=== PATIENT | female | born 1975 | race Caucasian/White ===

== ENCOUNTER → 2016-03-29 16:43 | Emergency (ER) | payer OTHER ==
[~2016-03-29 16:43] MED LIST: HYDROcodone/ACETAMIN 5-325 MG* 1 TAB ONE; HYDROcodone/ACETAMIN 5-325 MG* 1 TAB PO ONE; Ketorolac INJ* 30 MG/ML 1 ML VIAL IV PUSH ONE; Morphine INJ* 4 MG/ML 1 ML CARPUJECT IV ONE; Ondansetron INJ* 2 MG/ML VIAL IV ONE
[2016-03-29 16:49] VITALS: BP 119/90
--- NOTE | 2016-03-29 17:25 | ED ---
Abdominal Pain/Female - HPI Summary HPI Summary: Pt here w/ ab pain. She's been dealing with this for a while but worse as of late - was at work today and states she couldn't take it anymore. Has tried ibuprofen, aleve, tylenol and heating pad w/o relief. H/o fibroids (last TVUS here in 2014 confirms uterine fibroids). Has had vaginal bleeding x 10 months but stopped bleeding this past week. Denies fever, chills, N/V. She has chronic diarrhea for which she takes loperimide w/ good results. Denies external vaginal pain, dysuria, urinary frequency, flank pain. Pt states she had a pelvic exam at [facility] last week. Nothing to report. She also had a pap smear [address] Annemarie Vasquez through [facility] - no abnormal findings and no h/o abnormal findings. No known h/o ovarian cysts. 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 She was able to deliver baby (her daughter) who is alive and well. Pt has not been sexually active in > 1 year and denies vaginal d/c, irritation however does report she has intermittent odor and she's not sure why. - History of Current Complaint Chief Complaint: EDAbdPain Stated Complaint: ABD PAIN Time Seen by Provider: 03/29/16 16:58 Hx Obtained From: Patient Hx Last Menstrual Period: bleeding since Mar 2014 Pain Intensity: 7 Allergies/Adverse Reactions: Allergies Allergy/AdvReac Type Severity Reaction Status Date / Time Aspirin Allergy Hives Verified 03/29/16 16:45 Codeine Allergy Vomiting Verified 03/29/16 16:45 PMH/Surg Hx/FS Hx/Imm Hx Previously Healthy: Yes Endocrine/Hematology History: Reports: Hx Anemia Denies: Hx Bone Marrow Disease, Hx Diabetes, Hx Sickle Cell Disease, Hx Thyroid Disease Cardiovascular History: Denies: Hx Congestive Heart Failure, Hx Hypertension Respiratory History: Reports: Hx Asthma Denies: Hx Chronic Obstructive Pulmonary Disease (COPD) GI History: Reports: Hx Gastroesophageal Reflux Disease, Other GI Disorders - chronic diarrhea of unknown etiology Denies: Hx Ulcer History: Reports: Other Problems/Disorders - 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 Left knee acl and ligament repairs - multiple, last one when she was in her early 30's. . [facility]. Ovarian cysts, bleeding cysts, miscarriage. Tubal Hx Anesthesia Reactions: No Infectious Disease History: No Infectious Disease History: Denies: Hx Hepatitis, Hx Human Immunodeficiency Virus (HIV), History Other Infectious Disease, Traveled Outside the [place] in Last 30 Days - Family History Known Family History: Positive: None - Social History Occupation: Employed Full-time - [employer] Alcohol Use: Rare Substance Use Type: Reports: None Smoking Status (MU): Former Smoker Have You Smoked in the Last Year: No Review of Systems Negative: Fever, Chills Negative: Chest Pain Negative: Shortness Of Breath Gastrointestinal: Other - see HPI Positive: Abdominal Pain, Diarrhea. Negative: Vomiting, Nausea Genitourinary: Negative Positive: see HPI Musculoskeletal: Negative Skin: Negative Neurological: Negative Psychological: Normal All Other Systems Reviewed And Are Negative: Yes Physical Exam Triage Information Reviewed: Yes Vital Signs On Initial Exam: Initial Vitals Temp Pulse Resp BP Pulse Ox 99.2 F 63 18 119/90 97 03/29/16 16:45 03/29/16 16:45 03/29/16 16:45 03/29/16 16:45 03/29/16 16:45 Vital Signs Reviewed: Yes Appearance: Positive: Well-Appearing, Pain Distress, Obese Skin: Positive: Warm, Dry Head/Face: Positive: Normal Head/Face Inspection Eyes: Positive: Normal, EOMI, Conjunctiva Clear - anicteric sclera ENT: Positive: Hearing grossly normal, Pharynx normal - mucosa moist Respiratory/Lung Sounds: Positive: Clear to Auscultation, Breath Sounds Present Cardiovascular: Positive: Normal, RRR Abdomen Description: Positive: Soft, Other: - diffuse tenderness - no rebounding Pelvic Exam: Positive: external exam normal, speculum exam normal, discharge - scant thin clear/yellow d/c, tender w/ cervical motion, tender adnexa, tender uterus. Negative: active bleeding, cervicitis, lesions, mass - difficult to asses uterus d/t body habitus, ulcers Musculoskeletal: Positive: Normal, Strength/ROM Intact Neurological: Positive: Normal, Sensory/Motor Intact, Alert, Oriented to Person Place, Time Psychiatric: Positive: Normal - concerned, anxious, in pain Diagnostics - Vital Signs Vital Signs Temp Pulse Resp BP Pulse Ox 03/29/16 16:45 99.2 F 63 18 119/90 97 - Laboratory Result Diagrams: 03/29/16 17:20 03/29/16 17:20 Lab Statement: Any lab studies that have been ordered have been reviewed, and results considered in the medical decision making process. Re-Evaluation - Re-Evaluation First Eval Change: Unchanged - s/p toradol Second Eval Change: Improved - s/p morphine Abdominal Pain Fem Course/Dx - Course Course Of Treatment: Pt presents w/ acute on chronic pelvic pain. She has a h/o uterine fibroids and recently had vaginal bleeding for 10 months straight. She is not bleeding at this time and her labs do not indicate anemia, coagulopathy, etc. TVUS confirms fibroids although smaller than in 2015. She has a PCP and will f/u there tomorrow as she had a pap smear recently (results are normal per pt, no results for review here). Pt also reports she had imaging at through [facility] recently - results "normal". Vaginal swabs were collected today and w/ a d /c noted as well as pelvic pain on bimanual exam and report of odor at times, will start tx for BV today. Pt's hx does not warrant tx of gonorrhea, chlamydia and she would not take empiric tx anyway. Short course of pain medication provided as well as education about castor oil packs, heat and close f/u w/ [facility] as she may be a candidate for hysterectomy. Reports she would be interested in having this procedure if appropriate. Discussed danger s/sx of when to return to ED sooner. Pt agrees w/ plan. - Diagnoses Provider Diagnoses: Fibroid, uterine, Pelvic pain Discharge - Discharge Plan Condition: Stable Disposition: HOME Prescriptions: Clindamycin Phosphate Vaginal [Cleocin] 2 % VA BEDTIME #1 tube HYDROcodone/ACETAMIN 5-325 MG* [[place] 5-325 TAB*] 1 tab PO Q6H PRN #20 tab MDD 4 PRN Reason: Pain Patient Education Materials: Uterine Fibroids (ED), Bacterial Vaginosis (ED) Referrals: Non Staff,Doctor [Primary Care Provider] - Aicha Dubon DO [Doctor of Osteopathy] - Shelley Quevedo MD [Medical Doctor] - Additional Instructions: Your pelvic pain appears to be from your uterine fibroids. It was also discussed that you may have a mild bacterial infection. The latter is being teated with vaginal suppositories. The fibroids will be treated with heat, NSAID 's, castor oil packs and norco for breakthrough pain. It is important that you follow-up with your PCP to discuss results of vaginal cultures today as well as other test results from exams through [facility] last week and pap 4 months ago. *If you develop worsening of pain, fever, chills, vomiting, heavy vaginal bleeding, back pain, chest pain, shortness of breath, return to ED
[2016-03-29 17:33] LABS: Hematocrit 37 % (35-47); Mean Corpuscular HGB Conc 33 g/dl (31-36); Mean Corpuscular Hemoglobin 27 pg (27-31); Mean Corpuscular Volume 83 fL (80-97); Mean Platelet Volume 9 um3 (7.4-10.4); Red Blood Count 4.49 10^6/ul (4.0-5.4); Red Cell Distribution Width 14 % (10.5-15)
[2016-03-29 17:47] LABS: BUN/Creatinine Ratio 8.5 (8-20); C Reactive Protein 12.54 mg/L (< 5.00); Calcium 9.6 mg/dL (8.6-10.3); EGFR African American 116.1 (>60); EGFR Non-African American 90.3 (>60); Globulin 3.8 g/dL (2-4); Potassium 3.8 mmol/L (3.5-5.0); Total Bilirubin 0.3 mg/dL (0.2-1.0); Total Protein 7.8 g/dL (6.4-8.9)
[2016-03-29 17:51] LABS: Urine Bacteria Absent (Absent); Urine Bilirubin Negative (Negative); Urine Glucose Negative (Negative); Urine Nitrite Negative (Negative)
--- NOTE | 2016-03-29 19:39 | RAD ---
Indication: Bilateral pelvic pain. Vaginal bleeding. Uterine fibroids. Comparison: August 30, 2014 Technique: Transabdominal pelvic ultrasound. Report: 10.7 x 6.2 x 6.0 cm uterus with lobular contour secondary to fibroids. Anterior uterine body myometrial to subserosal fibroid measures 3.2 x 2.4 x 3.5 cm with interval decrease from 5.3 x 4.6 x 4.9 cm. Anterior fundal 3.6 x 3.8 x 3.0 cm myometrial fibroid with resulting impression on the endometrium is decreased from 5.6 x 4.9 x 6.0 cm previously. Posterior myometrial 4.2 x 4.4 x 4.0 cm fibroid with resulting impression on the endometrium previously measured 6.1 x 3.8 x 5.2 cm. 7.5 mm endometrium. Negative for free pelvic fluid. 2.7 x 1.3 x 2.4 cm RIGHT ovary with documented vascular flow is unremarkable. 1.8 x 1.4 x 2.5 cm LEFT ovary with documented vascular flow is unremarkable. No visualized extra ovarian adnexal region lesions evident. IMPRESSION: 1. Interval decrease in size of uterine fibroids compared with the August 30, 2014 exam as described. 2. The endometrium is normal in thickness. 3. Negative for ovarian or extraovarian adnexal region lesions or free pelvic fluid.
== END | disposition home or self-care (01) ==
LOC: ED 16:43
DX: D25.9 Leiomyoma of uterus, unspecified (principal); R10.2 Pelvic and perineal pain
CPT/HCPCS: 36415; 76856; 80053; 81003; 81015; 83605; 83690; 84702; 85025; 86140; 87086; 87480; 87491; 87510; 87591; 87661; 96374; 96375; 99284; J1885; J2270; J2405

== ENCOUNTER → 2018-11-09 10:07 | Day surgery (SDC) | payer OTHER ==
[~2018-11-09 10:07] MED LIST changes: +Acetaminophen TAB* 325 MG PO PRN; +Buffered Lidocaine 1% SYRIN* 1 ML/SYRINGE INTRADERM ONE; +Famotidine IV* 10 MG/ML 2 ML (20 mg) IV ONE; +Famotidine IV* 10 MG/ML 2 ML (20 mg) ONE; +Glycopyrrolate IV* 0.2 MG/ML 1 ML VIAL ONE; -HYDROcodone/ACETAMIN 5-325 MG* 1 TAB ONE; -HYDROcodone/ACETAMIN 5-325 MG* 1 TAB PO ONE; +KETAMINE HCL* 50 MG/ML 10 ML VIAL ONE; -Ketorolac INJ* 30 MG/ML 1 ML VIAL IV PUSH ONE; +Lactated Ringers 1000 ML Bag* 1,000 ML IV SCH; +Midazolam* 1 MG/ML 2 ML VIAL (2 MG) ONE; +Midazolam* 1 MG/ML 5 ML VIAL (5 MG) ONE; -Morphine INJ* 4 MG/ML 1 ML CARPUJECT IV ONE; +Naloxone* 0.4 MG/ML 1 ML VIAL IV PRN; -Ondansetron INJ* 2 MG/ML VIAL IV ONE; +Ondansetron INJ* 2 MG/ML VIAL ONE; +Propofol* 10 MG/ML 20 ML BTL ONE; +fentaNYL* 50 MCG/ML 2 ML VIAL (100 MCG VIAL) ONE
[2018-11-09] MEDS: Buffered Lidocaine 1% SYRIN* 1 ML/SYRINGE INTRADERM ONE (11:39)
--- NOTE | 2018-11-09 15:06 | PRO ---
CC: Shelley Roth NP * DATE OF PROCEDURE: 11/09/2018 - [facility] PROCEDURE PERFORMED: Colonoscopy - incomplete due to poor prep. REFERRING PROVIDER: Shelley Roth NP. INDICATION: Patient has complaints of diarrhea multiple times per day as well as abdominal discomfort. A colonoscopy was attempted in August 2018, although the prep was incomplete. A polyp was removed during the exam in the distal left colon which was read as a tubular adenoma. Scheduled for repeat colonoscopy with extended prep. The patient today says that she is continuing to have brown stool and did not have much output with the prep. MEDICATIONS GIVEN: By Anesthesia. DESCRIPTION OF PROCEDURE: Full disclosure of risks was reviewed with the patient as detailed on the consent form. The patient was placed in the left lateral decubitus position and monitored with continuous pulse oximetry, capnography, interval blood pressure monitoring, and direct observation. After anorectal examination was performed, the adult colonoscope was inserted into the rectum and slowly advanced through the rectum. There was solid stool encountered. Procedure was aborted due to the inadequate prep. The scope was slowly withdrawn throughout the anal canal. There were small internal hemorrhoids appreciated. The patient was recovered in the GI recovery area. IMPRESSION: 1. Incomplete colonoscopy. Solid stool present on exam. FOLLOW-UP: 1. The patient will need to be seen in the clinic. She has now had two incomplete colonoscopies due to poor prep. Should undergo colonoscopy given symptoms and tubular adenoma seen on recent colonoscopy. However, we will need to discuss appropriate way to prep patient for this exam. Thank you very much for this referral. [id number]/[facility] #: [id number] MARIAJOSE
[2018-11-09 15:11] VITALS: BP 185/91
--- NOTE | 2018-11-10 01:57 | PRO ---
CC: NAILA Carrizales * DATE OF PROCEDURE: 11/09/18 - [facility] PROCEDURE: EGD with biopsy. REFERRING PROVIDER: NAILA Carrizales INDICATION: The patient underwent an EGD in August for significant GERD despite high dose PPI. She had [id number] esophagitis, hiatal hernia, and retained gastric food contents. She was recently changed to Dexilant 60 mg. The patient presents today to reassess esophagitis. Symptoms are unchanged with significant reflux on a regular basis. MEDICATIONS GIVEN: By Anesthesia. DESCRIPTION OF PROCEDURE: Full disclosure of risks was reviewed with the patient as detailed on the consent form. The patient was placed in left lateral decubitus position and monitored with continuous pulse oximetry, capnography, interval blood pressure monitoring, and direct observation. A bite -block was placed between the patient's teeth. An adult gastroscope was then inserted into the patient's mouth and advanced down the esophagus, into the stomach, and into the distal duodenum. Findings and interventions are described below. FINDINGS: Esophagus was a tubular structure without strictures or rings. There was mild to moderate severity erosive esophagitis in the distal esophagus with several linear erosions and a single clean-based ulcer located several centimeters above the GE junction. It was difficult to completely assess the GE junction given the esophagitis. GE junction occurred around 39 cm. There was pooling of liquid seen in the distal esophagus throughout the exam. Scope was advanced into the stomach. Stomach was examined in the forward and retroflexed views. There was a small 2 cm hiatal hernia with the top of the gastric fold measuring at 41 cm. In the stomach, there was a moderate amount of retained liquid and food debris. No erosions or ulcers. There were a few gastric polyps measuring approximately 5 mm each. Biopsies obtained from the gastric polyps. Scope was then advanced into the duodenum to at least the third portion. Duodenal mucosa was normal in appearance. Scope was then withdrawn back into the esophagus. Biopsies were obtained from the mid and distal esophagus. Scope was then withdrawn from the patient. The patient tolerated the procedure well and was recovered in the GI recovery area. IMPRESSION: 1. Complete upper endoscopy to the distal duodenum. 2. Persistent [id number] severity esophagitis. 3. Small hiatal hernia. 4. Retained gastric food contents suggestive of gastroparesis. FOLLOWUP: 1. Will switch from Dexilant to Nexium 40 mg twice daily. 2. Reviewed GERD lifestyle management recommendations. 3. Await pathology. 4. Schedule for gastric emptying study Thank you very much for this referral. [id number]/[facility] #: [id number] MARIAJOSE
== END | disposition home or self-care (01) ==
LOC: OR 10:07
PROVIDERS: ATTEND Internal Medicine Gastroenterology
DX: K21.0 Gastro-esophageal reflux disease with esophagitis (principal); K44.9 Diaphragmatic hernia without obstruction or gangrene; R10.9 Unspecified abdominal pain; R19.7 Diarrhea, unspecified; Z86.010 Personal history of colon polyps; K64.8 Other hemorrhoids; Z09 Encounter for follow-up examination after completed treatment for conditions other than malignant neoplasm; Z12.11 Encounter for screening for malignant neoplasm of colon
CPT/HCPCS: 88305; J2250; J2405; J2704; J3010

== ENCOUNTER 2019-01-17 18:28 | Emergency (ER) | payer SELFPAY ==
--- OUTSIDE RECORDS SUMMARY | 2019-01-17 18:38 | XMS REPORT | Continuity of Care Document ---
:1975 External Reference #:[id number] Author Name Jana Caraballo PA-C Address [address] [place] [address] Care Team Providers Name Role Phone Marisela Rangel MD Care Team Information Bank Manager [phone] Problems Active Problems Provider Date Abdominal pain Jana Caraballo PA-C Onset: 12/24/2017 Diarrhea Jana Caraballo PA-C Onset: 12/24/2017 Gastroesophageal reflux disease Jana Caraballo PA-C Onset: 12/24/2017 Social History Type Date Description Comments Sex Unknown Tobacco Use Start: Unknown End: Unknown Patient is a former smoker Smoking Status Reviewed: 12/23/18 Patient is a former smoker Allergies, Adverse Reactions, Alerts Active Allergies Reaction Severity Comments Date Codeine 12/24/2017 Aspirin 12/24/2017 Medications Active Medications SIG Qnty Indications Ordering Provider Date Lansoprazole Take 1 capsule 60caps Marium 12/01/2018 30mg by mouth twice MD Isidro Capsules daily. Citalopram 1 by mouth every Unknown Hydrobromide day 40mg Tablets Lamotrigine Daily Unknown 100mg Tablets Cetirizine HCL 1 by mouth every Unknown 10mg day Tablets Ventolin HFA prn Unknown 108(90Base) mcg/Act Aerosol History Medications Nexium 24HR use 2 capsules by 120connie Felix, 11/09/2018 - mouth twice daily 12/23/[address] Truong With by mouth as directed 4000ml Marium Felxi, 09/12/2018 - Flavor Packs 12/23/2018 240gm Solution Rec Suprep Bowel Prep use as directed as 354ml Marium Felix, 2018 - Kit on printed 12/23/2018 instructions given 17.5-3.13-1.6GM/1 to patient. patient 77ML Solution may administer to self in preparation for procedures Dexilant 1 by mouth every day 30caps Marium Felix, 08/26/2018 - 60mg 12/23/[address] Truong With by mouth as directed 4000ml Marium Felix, 07/11/2018 - Flavor Packs 08/26/2018 240gm Solution Rec Suprep Bowel Prep as directed 1units Marium Felix, 07/08/2018 - Kit 08/26/2018 17.5-3.13-1.6GM/1 77ML Solution Immunizations Description No Information Available Vital Signs Date Vital Result Comment 12/23/2018 10:37am Height 62.5 inches 5'2.50" Weight 196.00 lb BMI (Body Mass Index) 35.3 kg/m2 12/24/2017 10:30am Height 62.5 inches 5'2.50" Weight 202.00 lb BMI (Body Mass Index) 36.4 kg/m2 Results Test Acquired Date Facility Test Result H/L Range Note Laboratory test 11/09/2018 [facility] [place]ULT 1 finding Pathology Order BELOW Laboratory test 08/26/2018 [facility] [place] 2, 3 finding Pathology Order BELOW Laboratory test 08/26/2018 [facility] [place] SEE RESULT 4, 5 finding BELOW 1 SEE RESULT BELOW Name: MARY GRACEIAN : [address]: Marium Felix MD Acct: [id number] Unit: [id number] AGE: 42 Location: OR Re11/09/18 SEX: F Status: [place] [facility] [place]C: [id number] PASCUAL: 11/09/18-[address]: Marium Tate MD REQ: [id number] RECD: 11/09/18 STATUS: SOUT _ ORDERED: LEVEL 4/3 FINAL DIAGNOSIS 1. Stomach, polyp, biopsy: -- Fundic gland polyp. 2. Distal esophagus, biopsy: -- Moderate reflux esophagitis. (Up to 10 eosinophil/HPF). -- No glandular component identified. 3. Midesophagus, biopsy: -- Superficial squamous mucosa with mild esophagitis with eosinophilia (up to 3 eosinophil/HPF). -- No glandular component identified. Comment: The distribution and intensity of eosinophilic inflammation is most indicative of reflux esophagitis. Correlation with clinical and endoscopic findings is recommended. CLINICAL HISTORY Gastroesophageal reflux disease with esophagitis; diarrhea; abdominal pain; polyp POST-OPERATIVE DIAGNOSIS EGD: esophagus ??? moderate/severe erosive esophagitis; liquid in esophagus; mid and distal biopsy; gastric ??? retained liquid food debris; few polyps approximately 5 mm biopsy; duodenum ??? normal; colonoscopy: solid stool GROSS DESCRIPTION 1. The specimen is received in formalin labeled, Biopsy Gastric Polyp, and consists of a 0.4 by up to 0.3 x 0.3 cm schumacher-pink polypoid soft tissue fragment which is submitted entirely in one cassette. CONTINUED ON NEXT PAGE DEPARTMENT OF PATHOLOGY, [address] [place] [address] Angel Grijalva M.D. Director [facility] # [id number] 2. The specimen is received in formalin labeled, Biopsy Esophagus Distal, and consists of a 0.7 x 0.6 x 0.1 cm aggregate of white-pink irregular soft tissue fragments which is submitted entirely in one cassette. 3. The specimen is received in formalin labeled, Biopsy Esophagus Mid, and consists of a 0.7 x 0.6 x 0.1 cm aggregate of white-pink irregular soft tissue fragments which is submitted entirely in one cassette. Signed by and Reported on: Angel Grijalva MD 1245 END OF REPORT DEPARTMENT OF PATHOLOGY, [address] [place] [address] Angel Grijalva M.D. Director [facility] # [id number] SEE RESULT BELOW Name: CEDRIC BRODY : [address]: Marium Felix MD Acct: [id number] Unit: [id number] AGE: 42 Location: ENDOCEC Re08/26/18 SEX: F Status: DEP REF SPEC: [id number] PASCUAL: 08/26/18- SUBM DR: Marium Tate MD REQ: [id number] RECD: 08/26/18-1150 STATUS: SOUT _ ORDERED: LEVEL 4/7 COMMENTS: [id number] FINAL DIAGNOSIS 1. Small bowel, duodenum, biopsy: -- Small bowel mucosa with normal villous architecture and no significant pathologic abnormality. -- No villous blunting nor increased inflammatory infiltrate identified. 2. Stomach, biopsies: -- Gastric antral and oxyntic gland mucosa with no significant pathologic abnormality. -- No active gastritis or Helicobacter pylori-like organisms are identified. 3. Gastroesophageal junction, biopsy: -- Gastroesophageal transition zone mucosa with mild to moderate reflux esophagitis (up to 16 eosinophil/HPF). -- Goblet cell/intestinal metaplasia identified. -- No dysplasia identified. 4. Distal esophagus, biopsy: -- Superficial squamous mucosa with mild reflux esophagitis (up to 4 eosinophil/HPF. -- No glandular component identified. 5. Midesophagus, biopsy: -- Superficial squamous epithelium with no significant pathologic abnormality. -- No evidence of allergic/eosinophilic esophagitis or reflux esophagitis identified. -- No glandular component identified. 6. Colon, random biopsies: -- Large intestinal mucosa with no significant pathologic abnormality. -- No evidence of microscopic/lymphocytic colitis, collagenous colitis or other acute or chronic inflammatory bowel process identified. 7. Colon, sigmoid, biopsy: -- Tubular adenoma. -- No high grade dysplasia or malignancy. CONTINUED ON NEXT PAGE DEPARTMENT OF PATHOLOGY, [address] [place] [address] Angel Grijalva M.D. Director [facility] # [id number] RUN DATE: 08/29/18 [facility] LAB LIVE PAGE 2 Patient: CEDRIC BRODY [id number] (Continued) FINAL DIAGNOSIS (Continued) CLINICAL HISTORY Gastroesophageal reflux disease; diarrhea; abdominal pain POST-OPERATIVE DIAGNOSIS EGD: esophagus - 39 z line biopsy irregular; 38 - gastroesophageal junction; esophagitis (moderate); biopsy mid and distal; gastric - retained debris streaky erythema in body biopsy; mild antral erythema; biopsy; AKI test; duodenum - nodular bulb; biopsy; colonoscopy: poor prep; colon to sigmoid; 8-10 mm sigmoid hot snare; oozing - clip; biopsy GROSS DESCRIPTION 1. The specimen is received in formalin labeled, Duodenal Biopsies, and consists of a 0.7 x 0.6 x 0.2 cm aggregate of schumacher-pink irregular soft tissue fragments which is submitted entirely in one cassette. 2. The specimen is received in formalin labeled, Gastric Biopsies, and consists of two schumacher-pink irregular soft tissue fragments measuring 0.3 x 0.2 x 0.2 cm and 0.9 x 0.2 x 0.2 cm which are submitted entirely in one cassette. 3. The specimen is received in formalin labeled, GE Junction Biopsies, and consists of a 0.8 x 0.4 x 0.2 cm aggregate of schumacher-pink irregular soft tissue fragments which is submitted entirely in one cassette. 4. The specimen is received in formalin labeled, Distal Esophagus Biopsies , and consists of a 0.7 x 0.6 by up to 0.2 cm aggregate of schumacher-pink irregular soft tissue fragments which is submitted entirely in one cassette. 5. The specimen is received in formalin labeled, Mid Esophagus Biopsies, and consists of a 0.6 x 0.4 x 0.1 cm aggregate of translucent schumacher-pink irregular soft tissue fragments which is submitted entirely in one cassette. 6. The specimen is received in formalin labeled, Random Colon Biopsies, and consists of a 1.0 x 0.5 x 0.1 cm aggregate of schumacher-pink irregular soft tissue fragments which is submitted CONTINUED ON NEXT PAGE DEPARTMENT OF PATHOLOGY, [address] [place] [address] Angel Grijalva M.D. Director [facility] # [id number] RUN DATE: 08/29/18 [facility] LAB LIVE PAGE 3 Patient: MARY GRACECEDRIC Graham [id number] (Continued) GROSS DESCRIPTION (Continued) entirely in one cassette. 7. The specimen is received in formalin labeled, Sigmoid Colon Polyp, and consists of a 0.4 x 0.3 x 0.1 cm aggregate of schumacher-pink irregular soft tissue fragments which is submitted entirely in one cassette. Signed by and Reported on: Angel Grijalva MD 10/10 1052 END OF REPORT DEPARTMENT OF PATHOLOGY, [address] [place] [address] Angel Grijalva M.D. Director [facility] # [id number] SEE RESULT BELOW Name: CEDRIC BRODY : [address]: Marium Felix MD Acct: [id number] Unit: [id number] AGE: 42 Location: ENDOC[facility] Re08/26/18 SEX: F Status: DEP REF SPEC: [id number] PASCUAL: 08/26/18- SUBM DR: Marium Tate MD REQ: [id number] RECD: 08/26/181150 STATUS: SOUT _ ORDERED: LEVEL 4/7, IMMUNO-FIRST COMMENTS: [id number] ADDENDUM Addendum: Immunohistochemical stains for Helicobacter pylori-like organisms were performed with appropriate controls on block 2 and are negative. Addendum Signed (signature on file) Angel Grijalva MD 1347 FINAL DIAGNOSIS 1. Small bowel, duodenum, biopsy: -- Small bowel mucosa with normal villous architecture and no significant pathologic abnormality. -- No villous blunting nor increased inflammatory infiltrate identified. 2. Stomach, biopsies: -- Gastric antral and oxyntic gland mucosa with no significant pathologic abnormality. -- No active gastritis or Helicobacter pylori-like organisms are identified. 3. Gastroesophageal junction, biopsy: -- Gastroesophageal transition zone mucosa with mild to moderate reflux esophagitis (up to 16 eosinophil/HPF). -- Goblet cell/intestinal metaplasia identified. -- No dysplasia identified. 4. Distal esophagus, biopsy: -- Superficial squamous mucosa with mild reflux esophagitis (up to 4 eosinophil/HPF. -- No glandular component identified. 5. Midesophagus, biopsy: -- Superficial squamous epithelium with no significant pathologic abnormality. -- No evidence of allergic/eosinophilic esophagitis or reflux esophagitis identified. -- No glandular component identified. CONTINUED ON NEXT PAGE DEPARTMENT OF PATHOLOGY, [address] [place] [address] Angel Grijalva M.D. Director [facility] # [id number] RUN DATE: 08/30/18 [facility] LAB LIVE PAGE 2 Patient: CEDRIC BRODY E [id number] (Continued) FINAL DIAGNOSIS (Continued) 6. Colon, random biopsies: -- Large intestinal mucosa with no significant pathologic abnormality. -- No evidence of microscopic/lymphocytic colitis, collagenous colitis or other acute or chronic inflammatory bowel process identified. 7. Colon, sigmoid, biopsy: -- Tubular adenoma. -- No high grade dysplasia or malignancy. CLINICAL HISTORY Gastroesophageal reflux disease; diarrhea; abdominal pain POST-OPERATIVE DIAGNOSIS EGD: esophagus - 39 z line biopsy irregular; 38 - gastroesophageal junction; esophagitis (moderate); biopsy mid and distal; gastric - retained debris streaky erythema in body biopsy; mild antral erythema; biopsy; AKI test; duodenum - nodular bulb; biopsy; colonoscopy: poor prep; colon to sigmoid; 8-10 mm sigmoid hot snare; oozing - clip; biopsy GROSS DESCRIPTION 1. The specimen is received in formalin labeled, Duodenal Biopsies, and consists of a 0.7 x 0.6 x 0.2 cm aggregate of schumacher-pink irregular soft tissue fragments which is submitted entirely in one cassette. 2. The specimen is received in formalin labeled, Gastric Biopsies, and consists of two schumacher-pink irregular soft tissue fragments measuring 0.3 x 0.2 x 0.2 cm and 0.9 x 0.2 x 0.2 cm which are submitted entirely in one cassette. 3. The specimen is received in formalin labeled, GE Junction Biopsies, and consists of a 0.8 x 0.4 x 0.2 cm aggregate of schumacher-pink irregular soft tissue fragments which is submitted entirely in one cassette. CONTINUED ON NEXT PAGE DEPARTMENT OF PATHOLOGY, [address] [place] [address] Angel Grijalva M.D. Director [facility] # [id number] RUN DATE: 08/30/18 [facility] LAB LIVE PAGE 3 Patient: CEDRIC BRODY [id number] (Continued) GROSS DESCRIPTION (Continued) 4. The specimen is received in formalin labeled, Distal Esophagus Biopsies , and consists of a 0.7 x 0.6 by up to 0.2 cm aggregate of schumacher-pink irregular soft tissue fragments which is submitted entirely in one cassette. 5. The specimen is received in formalin labeled, Mid Esophagus Biopsies, and consists of a 0.6 x 0.4 x 0.1 cm aggregate of translucent schumacher-pink irregular soft tissue fragments which is submitted entirely in one cassette. 6. The specimen is received in formalin labeled, Random Colon Biopsies, and consists of a 1.0 x 0.5 x 0.1 cm aggregate of schumcaher-pink irregular soft tissue fragments which is submitted entirely in one cassette. 7. The specimen is received in formalin labeled, Sigmoid Colon Polyp, and consists of a 0.4 x 0.3 x 0.1 cm aggregate of schumacher-pink irregular soft tissue fragments which is submitted entirely in one cassette. Signed by and Reported on: Angel Grijalva MD 10/10 1052 END OF REPORT DEPARTMENT OF PATHOLOGY, [address] [place] [address] Angel Grijalva M.D. Director [facility] # [id number] SEE RESULT BELOW Name: CEDRIC BRODY : [address]: Marium Felix MD Acct: [id number] Unit: [id number] AGE: 42 Location: ENDOC[facility] Re08/26/18 SEX: F Status: REG REF SPEC: [id number] PASCUAL: 08/26/18 [facility] DR: Marium Tate MD REQ: [id number] RECD: 08/26/18 STATUS: WILBER VARGAS DR: Shelley Roth SHARK BIOLOGIST _ SOURCE: GAS ANTRUM SPDESC: ORDERED: Clotest COMMENTS: [id number] Procedure Result Reported Site Clotest Final 08/27/18- 48 ML Clotest Negative * ML - Main Lab . END OF REPORT DEPARTMENT OF PATHOLOGY, [address] [place] [address] Angel Grijalva M.D. Director [facility] # [id number] Procedures Date Code Description Status 11/09/2018 46322 Colonoscopy Completed 11/09/2018 03790 EGD+Biopsy Single Or Multiple Completed 08/26/2018 26614 Moderate Sedation Services; Same Phys Intl 15 Mins; PT >= Completed 5 Years 08/26/2018 18404 Colonoscopy W/ Snare RM Of Polyp/Tumor/Lesion Completed 08/26/2018 44670 Colonscopy+Biopsy Completed 08/26/2018 19081 EGD+Biopsy Single Or Multiple Completed Medical Devices Description No Information Available Encounters Description No Information Available Assessments Date Code Description Provider 11/09/2018 R10.9 Unspecified abdominal pain Marium Felix MD 11/09/2018 K22.10 Ulcer of esophagus without bleeding Marium Felix MD 11/09/2018 K44.9 Diaphragmatic hernia without obstruction or Marium Tate MD gangrene 08/26/2018 R19.7 Diarrhea, unspecified Marium Felix MD 08/26/2018 K21.0 Gastro-esophageal reflux disease with Marium Felix MD esophagitis 08/26/2018 K44.9 Diaphragmatic hernia without obstruction or Marium Tate MD gangrene Plan of Treatment No Information Available Functional Status Description No Information Available Mental Status Description No Information Available Referrals Description No Information Available
--- NOTE | 2019-01-17 19:22 | ED ---
Abdominal Pain/Female - HPI Summary HPI Summary: Pt is a 43 y/o F presenting to the ED with a chief complaint of abdominal pain initially onset about 2 weeks ago. She states she went to [facility] where she was told she had a hernia around her umbilicus, and to come back with worsening pain, so she went back a couple of days later and they told her she was constipated. She became angry and left, but her pain is worse now. She notes bruising around her umbilicus and in her RLQ, nausea, and vomiting. She denies constipation and urinary symptoms. Hx includes hysterectomy, asthma, bipolar disorder, depression. - History of Current Complaint Chief Complaint: EDAbdPain Stated Complaint: HERNIA PER PT Time Seen by Provider: 01/17/19 19:04 Hx Obtained From: Patient Hx Last Menstrual Period: bleeding since Mar 2014 Onset/Duration: Gradual Onset, Lasting Weeks, Still Present Timing: Constant Severity Initially: Moderate Severity Currently: Moderate Pain Intensity: 5 Pain Scale Used: 0-10 Numeric Location: Discrete At: RLQ, Umbilical Radiates: No Aggravating Factor(s): Nothing Alleviating Factor(s): Nothing Associated Signs and Symptoms: Positive: Nausea, Vomiting. Negative: Constipation, Urinary Symptoms Allergies/Adverse Reactions: Allergies Allergy/AdvReac Type Severity Reaction Status Date / Time aspirin Allergy Hives Verified 11/09/18 11:16 codeine Allergy Vomiting Verified 11/09/18 11:16 Home Medications: Home Medications Citalopram TAB* [CeleXA TAB*] 40 mg PO DAILY 01/17/19 [History Confirmed ] Lansoprazole CAP (NF) [Prevacid CAP (NF)] 30 mg PO DAILY 01/17/19 [History Confirmed 01/17/19] PMH/Surg Hx/FS Hx/Imm Hx Previously Healthy: Yes Endocrine/Hematology History: Reports: Hx Anemia - IN PAST Denies: Hx Bone Marrow Disease, Hx Diabetes, Hx Sickle Cell Disease, Hx Thyroid Disease Cardiovascular History: Denies: Hx Congestive Heart Failure, Hx Hypertension Respiratory History: Reports: Hx Asthma - USES INHALERS Denies: Hx Chronic Obstructive Pulmonary Disease (COPD), Other Respiratory Problems/Disorders GI History: Reports: Hx Gastroesophageal Reflux Disease - USES MEDS, Other GI Disorders - chronic diarrhea of unknown etiology Denies: Hx Ulcer History: Reports: Other Problems/Disorders Musculoskeletal History: Reports: Hx Arthritis - LEFT KNEE Sensory History: Reports: Hx Contacts or Glasses - GLASSES Denies: Hx Hearing Aid Opthamlomology History: Reports: Hx Contacts or Glasses - GLASSES Neurological History: Reports: Other Neuro Impairments/Disorders - USES MEDS FOR BI POLAR DISORDER Psychiatric History: Reports: Hx Depression, Hx Bipolar Disorder - Surgical History Surgery Procedure, Year, and Place: Appendectomy 2013,Left thumb, mid 20's - [facility]. Left knee acl and ligament repairs - multiple, last one when she was in her early 30's. 1999. [facility]. Ovarian cysts, bleeding cysts, miscarriage. Tubal . HYSTERECTOMY 2014 [facility] Hx Anesthesia Reactions: No Infectious Disease History: No Infectious Disease History: Denies: Hx Hepatitis, Hx Human Immunodeficiency Virus (HIV), History Other Infectious Disease, Traveled Outside the [place] in Last 30 Days - Family History Known Family History: Negative: Diabetes - Social History Alcohol Use: Rare Hx Substance Use: No Substance Use Type: Reports: None Hx Tobacco Use: Yes Smoking Status (MU): Former Smoker Have You Smoked in the Last Year: No Review of Systems Positive: Abdominal Pain, Vomiting, Nausea. Negative: Other - constipation Positive: no symptoms reported All Other Systems Reviewed And Are Negative: Yes Physical Exam - Summary Physical Exam Summary: Appearance: Well-appearing, Well-nourished, lying in bed comfortably Skin: Warm, dry, no obvious rash Eyes: sclera anicteric, no conjunctival pallor ENT: mucous membranes moist, pharynx appears normal Neck: Supple, nontender Respiratory: Clear to auscultation, no signs of respiratory distress Cardiovascular: Normal S1, S2. No murmurs. Normal distal pulses in tibial and radial bilaterally. Abdomen: Obese. Diffuse tenderness without peritoneal signs. Discreet hernia not appreciated in groin or around umbilicus. Where the pt states she has bruising, there are only veins visible through the skin. There is no ecchymosis. Nml active bowel sounds heard. Musculoskeletal: Normal, Strength/ROM Intact. numerous linear scars noted on both forearms, consistent with cutting behavior Neurological: A&Ox3, awake and alert, mentation is normal, speech is fluent and appropriate Psychiatric: affect is normal, does not appear anxious or depressed Triage Information Reviewed: Yes Vital Signs On Initial Exam: Initial Vitals Temp Pulse Resp BP Pulse Ox 97.2 F 58 18 185/97 99 01/17/19 18:28 01/17/19 18:28 01/17/19 18:28 01/17/19 18:28 01/17/19 18:28 Vital Signs Reviewed: Yes Procedures - Sedation Patient Received Moderate/Deep Sedation with Procedure: No Diagnostics - Vital Signs Vital Signs Temp Pulse Resp BP Pulse Ox 01/17/19 18:41 58 172/97 99 01/17/19 18:28 97.2 F 58 18 185/97 99 - Laboratory Result Diagrams: 01/17/19 19:30 01/17/19 19:30 Lab Statement: Any lab studies that have been ordered have been reviewed, and results considered in the medical decision making process. - Radiology Abd XR Radiology Interpretation Completed By: ED Physician Summary of Radiographic Findings: No signs of obstruction. Pending official radiology report. Abdominal Pain Fem Course/Dx - Course Course Of Treatment: Pt is a 43 y/o F presenting to the ED with a chief complaint of abdominal pain initially onset about 2 weeks ago. She states she went to [facility] where she was told she had a hernia around her umbilicus. She notes bruising around her umbilicus and in her RLQ, nausea, and vomiting. She denies constipation and urinary symptoms. Hx includes hysterectomy, asthma, bipolar disorder, depression. On exam, pt has numerous linear scars noted on both forearms, consistent with cutting behavior. Her abd is obese with diffuse tenderness without peritoneal signs. Discrete hernia not appreciated in groin or around umbilicus. Where the pt states she has bruising, there are only veins visible through the skin. There is no ecchymosis. Nml active bowel sounds heard. CT scan from [facility] looks to be normal with some noted constipation. Abd XR shows: No signs of obstruction. Pt will be sent home with dx of abd pain. She is agreeable with this plan. - Diagnoses Provider Diagnoses: Abdominal pain Discharge ED - Sign-Out/Discharge Documenting (check all that apply): Patient Departure - Discharge Plan Condition: Good Disposition: HOME Patient Education Materials: Constipation (ED), Acute Abdominal Pain (ED) Forms: *Work Release Referrals: Marisela Rangel MD [Primary Care Provider] - 1 Week Additional Instructions: Try to get through the golytely over the next 12-24 hours. If your pain starts to improve after that, I think we have our diagnosis. The CT done a week ago did not show anything else that would cause your symptoms, and lab studies were unremarkable tonight. - Billing Disposition and Condition Condition: GOOD Disposition: Home - Attestation Statements Document Initiated by Maylinibe: Yes Documenting Scribe: Mamie Poole Provider For Whom Meg is Documenting (Include Credential): Bob Mora MD. Scribe Attestation: I, Mamie Poole, scribed for Bob Mora MD. on 01/18/19 at 0128. Scribe Documentation Reviewed: Yes Provider Attestation: The documentation as recorded by the maylinibe, Mamie Poole accurately reflects the service I personally performed and the decisions made by me, Bob Mora MD. Status of Scribe Document: Viewed
[2019-01-17 19:41] LABS: ABS Basophils 0.1 10^3/ul (0-0.2); ABS Eosinophils 0.4 10^3/ul (0-0.6); ABS Lymphocytes 4.5 10^3/ul (1.0-4.8); ABS Monocytes 1.4 10^3/ul (0-0.8); ABS Neutrophils 6.4 10^3/ul (1.5-7.7); Eosinophil % 2.9 %; Hematocrit 38 % (35-47); Hemoglobin 13.5 g/dL (12.0-16.0); Lymphocyte % 35.4 %; Mean Corpuscular HGB Conc 35 g/dL (31-36); Mean Corpuscular Hemoglobin 30 pg (27-31); Mean Corpuscular Volume 86 fL (80-97); Mean Platelet Volume 9.4 fL (7.4-10.4); Platelet Count 287 10^3/uL (150-450); Red Blood Count 4.46 10^6 /uL (3.70-4.87); Red Cell Distribution Width 14 % (10-15); White Blood Count 12.9 10^3/uL (3.5-10.8)
[2019-01-17 19:50] LABS: Albumin 3.9 g/dL (3.2-5.2); Calcium 9.4 mg/dL (8.6-10.3); Potassium 3.7 mmol/L (3.5-5.0); Total Bilirubin 0.2 mg/dL (0.2-1.0)
[2019-01-17 19:56] LABS: BUN/Creatinine Ratio 10.1 (8-20); C Reactive Protein 6.37 mg/L (<8.01); EGFR African American 111.3 (>60); Globulin 3.9 g/dL (2-4); Total Protein 7.8 g/dL (6.4-8.9)
[2019-01-17] MEDS ORDERED: PEG 3000 GI LAVAGE* 1 GALLON PO ONE (21:22)
[2019-01-17 21:40] VITALS: BP 150/73
== END 2019-01-17 21:30 | disposition home or self-care (01) ==
LOC: ED 18:28
DX: R10.9 Unspecified abdominal pain (principal); K80.20 Calculus of gallbladder without cholecystitis without obstruction; J45.909 Unspecified asthma, uncomplicated; F31.9 Bipolar disorder, unspecified; K21.9 Gastro-esophageal reflux disease without esophagitis; Z90.710 Acquired absence of both cervix and uterus; Z90.89 Acquired absence of other organs; Z87.891 Personal history of nicotine dependence; Z79.899 Other long term (current) drug therapy; Z88.5 Allergy status to narcotic agent; Z88.8 Allergy status to other drugs, medicaments and biological substances
CPT/HCPCS: 36415; 74018; 80053; 83605; 83690; 85025; 86140; 99283; A9270-GY

== ENCOUNTER 2023-03-14 05:23 | Inpatient (IN) ==
[2023-03-14] MEDS ORDERED: Heparin 5000 UNITS/ML 1 mL VIAL IV SCH (06:00)
[2023-03-14] MEDS ORDERED: Heparin DRIP 25,000 UNITS BAG 25,000 UNITS/250 ML BAG IV SCH (06:00)
[2023-03-14 06:41] LABS: Hematocrit 39.1 % (35-45); Hemoglobin 12.9 g/dL (11.5-14.3); Mean Corpuscular Hemoglobin 28.6 pg (27-33); Mean Corpuscular Hgb Conc 32.9 g/dL (31-36); Mean Corpuscular Volume 86.9 fL (80-97); Platelet Count 336 10^3/uL (150-450); Red Cell Distribution Width 14.5 % (12-17); White Blood Count 13.3 10^3/uL (3.8-11.8)
[2023-03-14 07:01] LABS: Albumin 3.8 g/dL (3.2-5.2); C Reactive Protein 20.61 mg/L (<8.01); Calcium 9.2 mg/dL (8.6-10.3); Creatinine, Serum 0.73 mg/dL (0.51-0.95); Globulin 3.9 g/dL (2-4); Potassium 3.6 mmol/L (3.5-5.0); Total Bilirubin 0.5 mg/dL (0.2-1.0); Total Protein 7.7 g/dL (6.4-8.9); eGFR CKD-EPI 100.8 (>60)
[2023-03-14 07:23] LABS: ABS Basophils 0.1 10^3/uL (0.0-0.1); ABS Lymphocytes 3.2 10^3/uL (1.0-4.8); ABS Monocytes 1.3 10^3/uL (0.0-0.9); ABS Nucleated RBC 0.01 10^3/ul; Eosinophil % 0.1 %; Lymphocyte % 23.6 %; Nucleated Red Blood Cells % 0.1 %/100WBC (0.0-0.8); RBC Morphology Normal (Normal); Smudge Cells Present
[2023-03-14 07:34] LABS: TSH Ultra Thyroid Stim Horm 0.85 mcIU/mL (0.34-5.60)
[2023-03-14] MEDS ORDERED: Metoprolol Tartrate 5 mg VIAL 5 ml VIAL (1 mg/ml) ONE (07:58)
[2023-03-14] MEDS: Metoprolol Tartrate 5 mg VIAL 5 ml VIAL (1 mg/ml) IV PRN ×2 (08:00→13:43)
[2023-03-14 08:16] LABS: High Sensitivity Troponin 1 Hr 48 pg/mL (<15); Rapid COVID-19 Molecular Undetected (Undetected)
[2023-03-14 09:11] LABS: Influenza A Molecular Negative (Negative); Influenza B Molecular Negative (Negative)
[2023-03-14] MEDS ORDERED: Chlorhexidine MOUTHWASH 0.12% 15 ML UDC SWISH SPIT ONE (09:37)
[2023-03-14] MEDS: Venlafaxine XR 75 mg PO SCH (10:13)
[2023-03-14] MEDS ORDERED: Nitroglycerin 0.3 mg TAB SL PRN (14:06)
[2023-03-14] MEDS ORDERED: Metoprolol Tartrate 5 mg VIAL 5 ml VIAL (1 mg/ml) IV PRN (14:17)
[2023-03-14] MEDS ORDERED: Metoprolol Tartrate 5 mg VIAL 5 ml VIAL (1 mg/ml) IV ONE (14:19)
[2023-03-14] MEDS: Heparin 5000 UNITS/ML 1 mL VIAL IV SCH ×2 (14:27→14:41)
[2023-03-14 14:40] LABS: Creatinine, Serum 0.85 mg/dL (0.51-0.95); eGFR CKD-EPI 83.9 (>60)
[2023-03-14 14:43] LABS: HDL Cholesterol 28.8 mg/dL
[2023-03-14] MEDS: Heparin DRIP 25,000 UNITS BAG 25,000 UNITS/250 ML BAG IV SCH (14:45)
[2023-03-14 15:46] LABS: ABS Basophils 0.1 10^3/uL (0.0-0.1); ABS Eosinophils 0.1 10^3/uL (0.0-0.5); ABS Lymphocytes 3.8 10^3/uL (1.0-4.8); ABS Monocytes 1.4 10^3/uL (0.0-0.9); ABS Neutrophils 6.1 10^3/uL (1.5-7.6); ABS Nucleated RBC 0.01 10^3/ul; Eosinophil % 1.1 %; Hematocrit 36.7 % (35-45); Hemoglobin 12.3 g/dL (11.5-14.3); Lymphocyte % 32.8 %; Mean Corpuscular Hgb Conc 33.5 g/dL (31-36); Mean Corpuscular Volume 86.5 fL (80-97); Mean Platelet Volume 9.1 fL (7.5-11.2); Nucleated Red Blood Cells % 0.1 %/100WBC (0.0-0.8); Platelet Count 325 10^3/uL (150-450); Red Blood Count 4.24 10^6/uL (3.63-4.92); Red Cell Distribution Width 14.4 % (12-17); White Blood Count 11.6 10^3/uL (3.8-11.8)
[2023-03-14 16:10] LABS: High Sensitivity Troponin 1 Hr 43 pg/mL (<15)
[2023-03-14 17:23] LABS: High Sensitivity Troponin 3 Hr 38 pg/mL (<15)
[2023-03-15 03:30] LABS: Hematocrit 38.1 % (35-45); Hemoglobin 12.5 g/dL (11.5-14.3); Mean Corpuscular Hemoglobin 28.6 pg (27-33); Mean Corpuscular Hgb Conc 32.9 g/dL (31-36); Mean Corpuscular Volume 87.1 fL (80-97); Mean Platelet Volume 9.5 fL (7.5-11.2); Platelet Count 313 10^3/uL (150-450); Red Blood Count 4.37 10^6/uL (3.63-4.92); Red Cell Distribution Width 14.6 % (12-17); White Blood Count 9.5 10^3/uL (3.8-11.8)
[2023-03-15 03:35] LABS: Creatinine, Serum 0.75 mg/dL (0.51-0.95); Magnesium 1.9 mg/dL (1.9-2.7); Potassium 3.7 mmol/L (3.5-5.0); eGFR CKD-EPI 97.5 (>60)
[2023-03-15] MEDS: Heparin 5000 UNITS/ML 1 mL VIAL IV SCH ×2 (03:39→11:47)
[2023-03-15 04:33] LABS: ABS Basophils 0.1 10^3/uL (0.0-0.1); ABS Eosinophils 0.2 10^3/uL (0.0-0.5); ABS Lymphocytes 2.9 10^3/uL (1.0-4.8); ABS Monocytes 1.3 10^3/uL (0.0-0.9); Lymphocyte % 30.7 %
[2023-03-15 04:34] LABS: RBC Morphology Normal (Normal)
[2023-03-15] MEDS ORDERED: Magnesium Sulfate IV 1GM/100ML 1 GM/100 ML BAG IV ONE (05:53)
[2023-03-15] MEDS: Venlafaxine XR 75 mg PO SCH (08:01)
[2023-03-15] MEDS ORDERED: Naloxone 0.4 mg VIAL 0.4 mg/ml 1 ml VIAL ONE (14:14)
[2023-03-15] MEDS ORDERED: fentaNYL 100 mcg/2 ml 50 MCG/ML VIAL ONE ×2 (14:14→15:17)
[2023-03-15] MEDS ORDERED: Midazolam 5 mg/5 ml VIAL 1 mg/ml 5 ml VIAL (5 mg) ONE ×2 (14:14→16:42)
[2023-03-15] MEDS ORDERED: Flumazenil 0.5 mg/5 ml 0.1 MG/ML 5 ml VIAL ONE (14:14)
[2023-03-15] MEDS ORDERED: Flumazenil 0.5 mg/5 ml 0.1 MG/ML 5 ml VIAL IV PRN (15:00)
[2023-03-15] MEDS ORDERED: fentaNYL 100 mcg/2 ml 50 MCG/ML VIAL IV SLOW PU ONE (15:00)
[2023-03-15] MEDS ORDERED: Midazolam 10 mg/10 ml VIAL 1 mg/ml 10 ml VIAL (10 mg) IV SLOW PU ONE (15:00)
[2023-03-15] MEDS ORDERED: Naloxone 0.4 mg VIAL 0.4 mg/ml 1 ml VIAL IV PUSH PRN (15:00)
[2023-03-15] MEDS: Heparin DRIP 25,000 UNITS BAG 25,000 UNITS/250 ML BAG IV SCH (15:29)
[2023-03-15] MEDS ORDERED: Amiodarone IV 150 mg/3 ml VIAL IVPB ONE (15:39)
[2023-03-15] MEDS ORDERED: Amiodarone 360 MG IVPREMIX 360 MG/200 ML BAG IV ONE (15:45)
[2023-03-15] MEDS ORDERED: .Amiodarone 24HR ONLY IV Protocol Order Note IV ONE (16:51)
[2023-03-15] MEDS ORDERED: Amiodarone 360 MG IVPREMIX 360 MG/200 ML BAG IV SCH (17:05)
[2023-03-15] MEDS: Amiodarone 360 MG IVPREMIX 360 MG/200 ML BAG IV SCH (23:04)
[2023-03-16 04:22] LABS: ABS Basophils 0.1 10^3/uL (0.0-0.1); ABS Eosinophils 0.3 10^3/uL (0.0-0.5); ABS Lymphocytes 2.6 10^3/uL (1.0-4.8); ABS Monocytes 1.2 10^3/uL (0.0-0.9); ABS Neutrophils 7.2 10^3/uL (1.5-7.6); ABS Nucleated RBC 0.01 10^3/ul; Eosinophil % 2.3 %; Hematocrit 35.3 % (35-45); Hemoglobin 11.7 g/dL (11.5-14.3); Lymphocyte % 22.3 %; Mean Corpuscular Hemoglobin 28.7 pg (27-33); Mean Corpuscular Hgb Conc 33.1 g/dL (31-36); Mean Corpuscular Volume 86.8 fL (80-97); Mean Platelet Volume 9.2 fL (7.5-11.2); Nucleated Red Blood Cells % 0.1 %/100WBC (0.0-0.8); Platelet Count 301 10^3/uL (150-450); Red Blood Count 4.06 10^6/uL (3.63-4.92); Red Cell Distribution Width 14.5 % (12-17); White Blood Count 11.5 10^3/uL (3.8-11.8)
[2023-03-16 04:27] LABS: Creatinine, Serum 0.87 mg/dL (0.51-0.95); Potassium 3.5 mmol/L (3.5-5.0); eGFR CKD-EPI 81.6 (>60)
[2023-03-16] MEDS: Venlafaxine XR 75 mg PO SCH (08:21)
[2023-03-16 08:37] LABS: Magnesium 1.9 mg/dL (1.9-2.7)
[2023-03-16] MEDS: Heparin DRIP 25,000 UNITS BAG 25,000 UNITS/250 ML BAG IV SCH (08:52)
[2023-03-16] MEDS: Amiodarone 360 MG IVPREMIX 360 MG/200 ML BAG IV SCH (10:53)
[2023-03-16] MEDS ORDERED: Magnesium Sulfate 2 gm BAG 2 GM/50 ML BAG IVPB ONE (11:36)
[2023-03-16] MEDS ORDERED: Potassium Chlor 20 meq TAB.ER PO ONE (11:36)
[2023-03-16] MEDS: Amiodarone 400 mg TAB PO SCH ×2 (16:40→20:53)
[2023-03-16] MEDS: Enoxaparin 80 MG/0.8 ML SYR SUBCUT SCH (20:53)
[2023-03-17 06:27] LABS: ABS Basophils 0.1 10^3/uL (0.0-0.1); ABS Eosinophils 0.2 10^3/uL (0.0-0.5); ABS Lymphocytes 2.6 10^3/uL (1.0-4.8); ABS Monocytes 1.2 10^3/uL (0.0-0.9); ABS Neutrophils 5.2 10^3/uL (1.5-7.6); ABS Nucleated RBC 0.01 10^3/ul; Eosinophil % 1.9 %; Hematocrit 34.1 % (35-45); Hemoglobin 11.2 g/dL (11.5-14.3); Lymphocyte % 28.1 %; Mean Corpuscular Hemoglobin 28.7 pg (27-33); Mean Corpuscular Hgb Conc 32.7 g/dL (31-36); Mean Corpuscular Volume 87.5 fL (80-97); Mean Platelet Volume 9.6 fL (7.5-11.2); Nucleated Red Blood Cells % 0.1 %/100WBC (0.0-0.8); Platelet Count 283 10^3/uL (150-450); Red Cell Distribution Width 14.7 % (12-17); White Blood Count 9.2 10^3/uL (3.8-11.8)
[2023-03-17 06:49] LABS: Calcium 9.3 mg/dL (8.6-10.3); Creatinine, Serum 0.72 mg/dL (0.51-0.95); Magnesium 2.1 mg/dL (1.9-2.7); Phosphorus 3.4 mg/dL (2.5-5.0); Potassium 3.8 mmol/L (3.5-5.0); eGFR CKD-EPI 102.4 (>60)
[2023-03-17] MEDS ORDERED: Amiodarone 400 mg TAB PO SCH (09:00)
[2023-03-17] MEDS: Amiodarone 400 mg TAB PO SCH ×2 (09:22→19:55)
[2023-03-17] MEDS: Venlafaxine XR 75 mg PO SCH (09:22)
[2023-03-17] MEDS: Enoxaparin 80 MG/0.8 ML SYR SUBCUT SCH ×2 (09:22→19:50)
[2023-03-17] MEDS ORDERED: Albuterol HFA INHALER 8 gm MDI INH PRN (09:34)
[2023-03-17] MEDS: Mometasone/Formoter 200/5 MDI INH SCH ×2 (11:59→20:49)
[2023-03-17] MEDS ORDERED: Furosemide 20 mg/2 ml IV VIAL IV ONE (16:03)
[2023-03-18 06:02] LABS: ABS Eosinophils 0.2 10^3/uL (0.0-0.5); ABS Monocytes 1.1 10^3/uL (0.0-0.9); ABS Neutrophils 5.5 10^3/uL (1.5-7.6); ABS Nucleated RBC 0.02 10^3/ul; Eosinophil % 2.1 %; Hematocrit 37.5 % (35-45); Hemoglobin 12.2 g/dL (11.5-14.3); Lymphocyte % 22.9 %; Mean Corpuscular Hemoglobin 28.5 pg (27-33); Mean Corpuscular Hgb Conc 32.5 g/dL (31-36); Mean Corpuscular Volume 87.5 fL (80-97); Mean Platelet Volume 9.7 fL (7.5-11.2); Nucleated Red Blood Cells % 0.2 %/100WBC (0.0-0.8); Platelet Count 282 10^3/uL (150-450); Red Blood Count 4.28 10^6/uL (3.63-4.92); Red Cell Distribution Width 15.1 % (12-17); White Blood Count 8.8 10^3/uL (3.8-11.8)
[2023-03-18 06:18] LABS: Creatinine, Serum 0.72 mg/dL (0.51-0.95); Magnesium 1.8 mg/dL (1.9-2.7); Phosphorus 4.1 mg/dL (2.5-5.0); Potassium 3.5 mmol/L (3.5-5.0); eGFR CKD-EPI 102.4 (>60)
[2023-03-18] MEDS ORDERED: Furosemide 20 mg/2 ml IV VIAL IV ONE (08:00)
[2023-03-18] MEDS: Mometasone/Formoter 200/5 MDI INH SCH ×2 (08:09→19:59)
[2023-03-18] MEDS: Venlafaxine XR 75 mg PO SCH (09:51)
[2023-03-18] MEDS: Amiodarone 400 mg TAB PO SCH ×2 (09:52→20:15)
[2023-03-18] MEDS: Enoxaparin 80 MG/0.8 ML SYR SUBCUT SCH ×2 (09:53→19:57)
[2023-03-18] MEDS: Chlorhexidine MOUTHWASH 0.12% 15 ML UDC SWISH SPIT SCH ×2 (16:41→19:58)
[2023-03-18] MEDS ORDERED: Ondansetron 4 mg VIAL 2 MG/ML 2 ml VIAL IV PRN (17:41)
[2023-03-18] MEDS ORDERED: Acetaminophen IV 1 GM/100ML 1,000 MG/100 ML BAG IV ONE (19:32)
[2023-03-19 06:09] LABS: ABS Basophils 0.1 10^3/uL (0.0-0.1); ABS Eosinophils 0.3 10^3/uL (0.0-0.5); ABS Lymphocytes 2.2 10^3/uL (1.0-4.8); ABS Monocytes 1.2 10^3/uL (0.0-0.9); ABS Neutrophils 5.4 10^3/uL (1.5-7.6); ABS Nucleated RBC 0.01 10^3/ul; Hematocrit 42.6 % (35-45); Hemoglobin 13.8 g/dL (11.5-14.3); Lymphocyte % 24.5 %; Mean Corpuscular Hemoglobin 28.6 pg (27-33); Mean Corpuscular Hgb Conc 32.5 g/dL (31-36); Mean Platelet Volume 9.4 fL (7.5-11.2); Nucleated Red Blood Cells % 0.2 %/100WBC (0.0-0.8); Platelet Count 316 10^3/uL (150-450); Red Blood Count 4.84 10^6/uL (3.63-4.92); Red Cell Distribution Width 14.9 % (12-17); White Blood Count 9.1 10^3/uL (3.8-11.8)
[2023-03-19] MEDS ORDERED: Acetaminophen IV 1 GM/100ML 1,000 MG/100 ML BAG IV ONE (06:14)
[2023-03-19] MEDS: Chlorhexidine MOUTHWASH 0.12% 15 ML UDC SWISH SPIT SCH ×4 (06:21→20:56)
[2023-03-19 07:08] LABS: Magnesium 1.8 mg/dL (1.9-2.7); Phosphorus 4.7 mg/dL (2.5-5.0); Potassium 4.1 mmol/L (3.5-5.0)
[2023-03-19 07:09] LABS: Calcium 9.2 mg/dL (8.6-10.3); Creatinine, Serum 0.66 mg/dL (0.51-0.95); eGFR CKD-EPI 107.5 (>60)
[2023-03-19] MEDS: Mometasone/Formoter 200/5 MDI INH SCH ×2 (07:44→19:31)
[2023-03-19] MEDS ORDERED: Regadenoson 0.4 MG/5 ML SYRINGE ONE (08:44)
[2023-03-19] MEDS ORDERED: Aminophylline 25 MG/ML VIAL ONE (08:44)
[2023-03-19] MEDS ORDERED: NS 0.9% 500 ml BAG 500 ML IV ONE (09:28)
[2023-03-19] MEDS: Venlafaxine XR 75 mg PO SCH (10:45)
[2023-03-19] MEDS: Enoxaparin 80 MG/0.8 ML SYR SUBCUT SCH (10:45)
[2023-03-19] MEDS: Amiodarone 400 mg TAB PO SCH ×3 (10:46→20:55)
[2023-03-19] MEDS: Magnesium Sulfate IV 1GM/100ML 1 GM/100 ML BAG IV SCH ×2 (11:10→12:32)
[2023-03-19] MEDS ORDERED: Amiodarone 400 mg TAB PO ONE (15:00)
[2023-03-19] MEDS: Metoprolol Tartrate 5 mg VIAL 5 ml VIAL (1 mg/ml) IV PRN (18:06)
[2023-03-20] MEDS: Metoprolol Tartrate 5 mg VIAL 5 ml VIAL (1 mg/ml) IV PRN ×2 (00:13→06:04)
[2023-03-20 05:41] LABS: Hematocrit 43.2 % (35-45); Hemoglobin 14.2 g/dL (11.5-14.3); Mean Corpuscular Hemoglobin 28.8 pg (27-33); Mean Corpuscular Hgb Conc 32.9 g/dL (31-36); Mean Corpuscular Volume 87.6 fL (80-97); Mean Platelet Volume 9.2 fL (7.5-11.2); Platelet Count 339 10^3/uL (150-450); Red Blood Count 4.93 10^6/uL (3.63-4.92); Red Cell Distribution Width 15.1 % (12-17); White Blood Count 10.5 10^3/uL (3.8-11.8)
[2023-03-20 05:59] LABS: Albumin 3.6 g/dL (3.2-5.2); Albumin/Globulin Ratio 0.9 (1-3); Calcium 9.5 mg/dL (8.6-10.3); Creatinine, Serum 0.7 mg/dL (0.51-0.95); Globulin 3.9 g/dL (2-4); Potassium 4.1 mmol/L (3.5-5.0); Total Bilirubin 0.4 mg/dL (0.2-1.0); Total Protein 7.5 g/dL (6.4-8.9)
[2023-03-20] MEDS: Mometasone/Formoter 200/5 MDI INH SCH ×2 (07:57→18:18)
[2023-03-20] MEDS: Amiodarone 400 mg TAB PO SCH ×2 (08:24→20:11)
[2023-03-20] MEDS: Venlafaxine XR 75 mg PO SCH (08:24)
[2023-03-20] MEDS: Chlorhexidine MOUTHWASH 0.12% 15 ML UDC SWISH SPIT SCH ×3 (08:25→20:12)
[2023-03-20] MEDS ORDERED: Amiodarone 400 mg TAB PO ONE (11:30)
[2023-03-21] MEDS: Amiodarone 400 mg TAB PO SCH ×2 (08:14→19:41)
[2023-03-21] MEDS: Venlafaxine XR 75 mg PO SCH (08:14)
[2023-03-21] MEDS: Mometasone/Formoter 200/5 MDI INH SCH ×2 (08:21→20:01)
[2023-03-21] MEDS ORDERED: Adenosine 3 MG/ML 2 ml VIAL (6 mg) IV PUSH ONE ×2 (12:44→13:14)
[2023-03-21] MEDS ORDERED: Adenosine 3 MG/ML 2 ml VIAL (6 mg) ONE (13:08)
[2023-03-21 19:05] LABS: TSH Ultra Thyroid Stim Horm 1.99 mcIU/mL (0.34-5.60)
[2023-03-21 19:07] LABS: Free T3 3.14 pg/mL (2.5-3.9); Free T4 0.97 ng/dL (0.61-1.12)
[2023-03-22] MEDS ORDERED: NS 0.9% 1000 ml BAG 1,000 ML IV ONE (07:00)
[2023-03-22] MEDS: Venlafaxine XR 75 mg PO SCH (07:45)
[2023-03-22] MEDS: Amiodarone 400 mg TAB PO SCH (07:46)
[2023-03-22] MEDS ORDERED: Flumazenil 0.5 mg/5 ml 0.1 MG/ML 5 ml VIAL ONE (08:35)
[2023-03-22] MEDS ORDERED: Midazolam 5 mg/5 ml VIAL 1 mg/ml 5 ml VIAL (5 mg) ONE (08:35)
[2023-03-22] MEDS ORDERED: Naloxone 0.4 mg VIAL 0.4 mg/ml 1 ml VIAL ONE (08:35)
[2023-03-22] MEDS ORDERED: fentaNYL 100 mcg/2 ml 50 MCG/ML VIAL ONE (08:35)
[2023-03-22] MEDS ORDERED: fentaNYL 100 mcg/2 ml 50 MCG/ML VIAL IV SLOW PU ONE (09:45)
[2023-03-22] MEDS ORDERED: Midazolam 10 mg/10 ml VIAL 1 mg/ml 10 ml VIAL (10 mg) IV SLOW PU ONE (09:45)
[2023-03-22] MEDS ORDERED: Lactated Ringers 1000 ml BAG 1,000 ML IV SCH (11:00)
[2023-03-22] MEDS: Mometasone/Formoter 200/5 MDI INH SCH ×2 (12:05→20:34)
[2023-03-22 14:06] VITALS: BP 89/53
== END 2023-03-22 16:10 | disposition home or self-care (01) | DRG 201 ==
LOC: ED 05:23 → SUATTDRO 07:00 → EDHOLD 07:00 → ICU 09:59 → MEDTELE 10:30
PROVIDERS: ADMIT Internal Medicine; ATTEND Internal Medicine
PROC: CARDVER (ICD-10-PCS; 2023-03-22 08:45)

== ENCOUNTER 2023-03-25 17:20 | Observation (INO) ==
[2023-03-25 17:44] LABS: ABS Basophils 0.1 10^3/uL (0.0-0.1); ABS Eosinophils 0.2 10^3/uL (0.0-0.5); ABS Monocytes 1.1 10^3/uL (0.0-0.9); ABS Nucleated RBC 0.03 10^3/ul; Eosinophil % 2.2 %; Hematocrit 42.9 % (35-45); Hemoglobin 14.1 g/dL (11.5-14.3); Lymphocyte % 28.5 %; Mean Corpuscular Hemoglobin 28.6 pg (27-33); Mean Corpuscular Hgb Conc 32.8 g/dL (31-36); Mean Corpuscular Volume 87.2 fL (80-97); Mean Platelet Volume 8.7 fL (7.5-11.2); Nucleated Red Blood Cells % 0.3 %/100WBC (0.0-0.8); Platelet Count 394 10^3/uL (150-450); Red Blood Count 4.92 10^6/uL (3.63-4.92); Red Cell Distribution Width 14.5 % (12-17); White Blood Count 10.4 10^3/uL (3.8-11.8)
[2023-03-25 17:52] LABS: INR 1.26 (0.83-1.13)
[2023-03-25 18:04] LABS: Albumin 4.1 g/dL (3.2-5.2); Creatinine, Serum 0.8 mg/dL (0.51-0.95); Globulin 4.2 g/dL (2-4); Potassium 4.3 mmol/L (3.5-5.0); Total Bilirubin 0.3 mg/dL (0.2-1.0); Total Protein 8.3 g/dL (6.4-8.9); eGFR CKD-EPI 90.3 (>60)
[2023-03-25 19:14] LABS: High Sensitivity Troponin 1 Hr 22 pg/mL (<15)
[2023-03-26] MEDS ORDERED: Mometasone/Formoter 200/5 MDI INH PRN (00:05)
[2023-03-26 06:47] LABS: ABS Basophils 0.1 10^3/uL (0.0-0.1); ABS Eosinophils 0.3 10^3/uL (0.0-0.5); ABS Lymphocytes 3.5 10^3/uL (1.0-4.8); ABS Monocytes 1.2 10^3/uL (0.0-0.9); ABS Neutrophils 3.8 10^3/uL (1.5-7.6); ABS Nucleated RBC 0.02 10^3/ul; Eosinophil % 3.1 %; Hematocrit 38.5 % (35-45); Hemoglobin 12.7 g/dL (11.5-14.3); Lymphocyte % 39.1 %; Mean Corpuscular Hemoglobin 28.4 pg (27-33); Mean Corpuscular Volume 86.1 fL (80-97); Mean Platelet Volume 8.9 fL (7.5-11.2); Nucleated Red Blood Cells % 0.2 %/100WBC (0.0-0.8); Platelet Count 371 10^3/uL (150-450); Red Blood Count 4.48 10^6/uL (3.63-4.92); Red Cell Distribution Width 13.9 % (12-17); White Blood Count 8.9 10^3/uL (3.8-11.8)
[2023-03-26 07:02] LABS: Calcium 8.9 mg/dL (8.6-10.3); Creatinine, Serum 0.87 mg/dL (0.51-0.95); Magnesium 1.9 mg/dL (1.9-2.7); Potassium 3.8 mmol/L (3.5-5.0); eGFR CKD-EPI 81.6 (>60)
[2023-03-26] MEDS ORDERED: Venlafaxine XR 75 mg PO SCH (09:00)
[2023-03-26 10:22] VITALS: BP 118/77
== END 2023-03-26 10:24 | disposition home or self-care (01) ==
LOC: ED 17:20 → EDHOLD 03-26 → INTOOBSV 03-26 → ICU 03-26 07:19 → EDHOLD 03-26 07:34
PROVIDERS: ADMIT Internal Medicine; ATTEND Internal Medicine